=== PATIENT | female | born 1935 | race Caucasian/White ===

== ENCOUNTER 2019-04-16 10:44 | Emergency (ER) | payer MEDICARE, OTHER, SELFPAY ==
[2019-04-16 10:48] VITALS: BP 177/102; RESP 16; TEMP 36.3; O2SAT 97; BMI 18.3
--- NOTE | 2019-04-16 11:04 | W.ED.EXTPRO ---
HPI - Extremity Problem General: Chief complaint: Extremity Problem,Nontraumatic Stated complaint: left hand pain Time Seen by Provider: 04/16/19 10:46 History of Present Illness: Associated symptoms: Deny fever(s) or rash Review of Systems General: Reports: 10 or more systems reviewed and unremarkable except in HPI and below Narrative: pt has had left wrist pain for the past few days. States that a family member brought her large dog with her for the and the pt may have injured her wrist pushing the dog away from her. Const: Denies: fever or body aches Musc: Reports: joint pain (left wrist), joint stiffness and limited range of motion Skin/Breast: Denies: rash, redness, skin tenderness or skin swelling Neuro: Denies: numbness in extremities or weakness in extremities PFSH ED PFSH: Statuses (acute, chronic, etc) shown below reflect problem list status as previously entered and may not be historically accurate Social History Smoking and tobacco status: former smoker Physical Exam Const: COMMON NORMALS: no apparent distress, oriented x3, healthy appearing, alert and well nourished GENERAL APPEARANCE: cooperative and well kempt ORIENTATION/CONSCIOUSNESS: Yes awake, Yes oriented to person, Yes oriented to place and Yes oriented to time Extremity: COMMON NORMALS: normal to inspection (left wrist ttp/min swelling) Neuro: COMMON NORMALS: oriented x3, CN's II-XII intact bilaterally, moves all extremities, no focal motor deficits, no sensory deficits noted, deep tendon reflexes 2+ bilaterally and gait normal SENSORIUM/ORIENTATION: Yes alert, Yes oriented to person, Yes oriented to place and Yes oriented to time Psych: APPEARANCE: Yes well kempt Course Vital Signs: Vital signs: Vital Signs Temperature 97.4 F L 04/16/19 10:48 Respiratory Rate 16 04/16/19 10:48 Blood Pressure 177/102 04/16/19 10:48 Pulse Oximetry 97 04/16/19 10:48 Discharge Plan Discharge Prescriptions: No Action metformin 850 mg Tablet 850 mg PO BID RF: 0 metoprolol tartrate 25 mg Tablet 25 mg PO DAILY RF: 0 atorvastatin 80 mg Tablet 80 mg PO DAILY RF: 0 Coding Level of Care Code ED Detention Attendant for Chg Fwd Exam Problem Focused
--- NOTE | 2019-04-16 11:05 | XR_ITS ---
WS: [id number] HAND LEFT TECHNIQUE: 3 views of the left hand CLINICAL INFORMATION: left hand pain COMPARISON: None. FINDINGS: Osteopenia. IP joint narrowing. Degenerative narrowing radiocarpal joint and first CMC. Calcification at the TFCC. Normal metacarpals. No acute fractures. XR/XR hand LT min 3V* [id number] IMPRESSION: Osteopenia. No acute fractures.
--- NOTE | 2019-04-16 11:48 | ED_ITS ---
HPI - Extremity Problem General: Chief complaint: Extremity Problem,Nontraumatic Stated complaint: left hand pain Time Seen by Provider: 04/16/19 10:46 PFSH ED PFSH: Statuses (acute, chronic, etc) shown below reflect problem list status as previously entered and may not be historically accurate Social History Smoking and tobacco status: former smoker Course Vital Signs: Vital signs: Vital Signs Temperature 97.4 F L 04/16/19 10:48 Respiratory Rate 16 04/16/19 10:48 Blood Pressure 177/102 04/16/19 10:48 Pulse Oximetry 97 04/16/19 10:48 Discharge Plan Discharge Patient Disposition: Home, Self-Care Clinical Impression: Wrist arthritis, Wrist arthralgia, Sprain and strain of left wrist Condition: Stable Prescriptions: No Action atorvastatin 80 mg Tablet 80 mg PO DAILY RF: 0 Vitamin B-12 1,000 mcg Tablet 1,000 mcg PO DAILY RF: 0 Aspir-81 81 mg Tablet,Delayed Release (Dr/Ec) 81 mg PO DAILY RF: 0 metoprolol succinate 25 mg Tablet Extended Release 24 Hr 25 mg PO DAILY RF: 0 metformin 750 mg Tablet Extended Release 24 Hr 750 mg PO BID RF: 0 Vitamin D3 2,000 unit Tablet 2,000 unit PO DAILY RF: 0 Discharge Orders: Discharge Order (Routine); Ordered 04/16/19 Ordered By: Santy Smyth Referrals: Toshia Gomez MD [Primary Care Provider] - Discharge Diet: Usual diet Discharge Activity: Resume usual activity Patient Instructions: Wrist Sprain (ED) Discharge Date/Time: 04/16/19 12:18 Coding Level of Care Code ED Service Desk Associate for Morris Lawson
[2019-04-16 12:17] VITALS: BP 156/97; PULSE 90; RESP 18; O2SAT 98
== END 2019-04-16 12:18 | disposition home or self-care (01) ==
LOC: ER 11:57
PROVIDERS: Emergency Provider Family Medicine; Family Provider Internal Medicine; PCP Internal Medicine
DX: M13.832 Other specified arthritis, left wrist (principal); S63.502A Unspecified sprain of left wrist, initial encounter; S66.912A Strain of unspecified muscle, fascia and tendon at wrist and hand level, left hand, initial encounter; Z87.891 Personal history of nicotine dependence; X58.XXXA Exposure to other specified factors, initial encounter
CPT/HCPCS: 73130; 99281

== ENCOUNTER 2019-07-04 09:47 | Outpatient (CLI) | payer MEDICARE, OTHER, SELFPAY ==
--- NOTE | 2019-07-04 09:54 | CT_ITS ---
WS: [id number] CT scan of the thoracic and abdominal aorta with and without IV contrast. Additional two-dimensional coronal and sagittal reconstruction was performed. MIP images were also performed. 07/04/2019 Clinical Data: AAA Comparison: CTA of the thoracic aorta, 06/28/2018. DLP: 1193.[address] scans at [facility] use at least one of these dose optimization techniques: automat ed exposure control; mA and/or kV adjustment per patient size (includes targeted exams where dose is matched to clinical indication); or iterative reconstruction. Findings: The thoracic aorta shows no change. There is dilatation of the ascending thoracic aorta 3.73 cm with a small atherosclerotic plaque on the left side. There is calcification in the thoracic aortic wall. The descending thoracic aorta shows its greatest dilatation just above the diaphragm with the diamete r measuring 4.43 cm, essentially unchanged. There is no dissection of the thoracic aorta. Abdominal aorta progressively narrows from its diaphragmatic origin. The largest diameter of the abdo rosie aorta is at the origin of the celiac artery measuring 2.96 cm unchanged. There is calcification in the wall of the abdominal aorta extending into the common iliac vessels. No dissection or extrava sation of the abdominal aorta can be seen. The chest findings remain the same. The patient has had bilateral augmentation mammoplasty implants. In the lungs, there are no nodules, masses or effusions. The heart size remains same with coronary ar alok calcification. There is no pericardial effusion. The thoracic vertebral bodies show osteoarthrit ic change. The abdomen shows a few gallbladder calcifications but no evidence of acute or chronic cholecystitis. The remainder of the abdomen is unremarkable. The bones of the lumbar spine show osteoarthritic fowler ge with disc narrowing at L5-S1. CT/CT angio chest abdomen Impression: 1. Thoracic aortic aneurysm with largest diameter just above its passage throug h the diaphragm. 2. Atherosclerotic dilatation of the abdominal aorta unchanged. 3. No significant change in chest or abdomen findings.
[2019-07-04 10:38] LABS: Blood Urea Nitrogen 26 mg/dL (8-23)
[2019-07-04] MEDS: iodixanol 320 mg/mL 100mL Btl IV (10:39)
== END 2019-07-04 09:48 | disposition home or self-care (01) ==
LOC: RADWPI 09:53
PROVIDERS: Family Provider Internal Medicine; PCP Internal Medicine; Visit Provider Internal Medicine Cardiovascular Disease
DX: I71.4 Abdominal aortic aneurysm, without rupture (principal); I70.0 Atherosclerosis of aorta; Z01.812 Encounter for preprocedural laboratory examination
CPT/HCPCS: 71275; 74175; 82565; 84520; Q9967

== ENCOUNTER 2019-12-15 10:24 | Emergency (ER) | payer MEDICARE, OTHER, SELFPAY ==
[2019-12-15 10:26] VITALS: BP 181/87; PULSE 103; RESP 18; TEMP 36.3; O2SAT 96; BMI 17.9
--- NOTE | 2019-12-15 10:34 | W.ED.FALL ---
HPI - Fall General: Chief Complaint: Fall Stated Complaint: fall/nose injury Time Seen by Provider: 12/15/19 10:33 History of Present Illness: HPI Narrative: Patient fell while carrying groceries this morning and struck her nose left side of her face chin on the sidewalk. She has bruising to her nose abrasion to her chin and has a headache. Denies any neck pain or any other related trauma. complaint: fall Onset (ago): minute(s) Fall from: standing Fall witnessed: yes, by family Place fall occurred: home Loss of consciousness: None Prolonged down time: no Symptoms prior to fall: none Context: tripped/slipped Location of injury: face Associated symptoms-after fall: Reports headache(s); Denies abdominal pain or chest pain Review of Systems Const: Denies: fever(s), chills or body aches Eyes: Denies: change in vision or blurry vision ENMT: Reports: other (Swelling to her nose and nose pain and a nosebleed that has resolved); Denies: throat pain or nasal congestion Card: Denies: chest pain or dyspnea on exertion Resp: Denies: dyspnea, productive cough or non-productive cough GI: Denies: abdominal pain, nausea or vomiting Musc: Denies: extremity pain Skin/Breast: Denies: rash Neuro: Reports: headache(s) Psych: Denies: anxiety or depression Joon/Lymph: Denies: easy bruising PFSH ED PFSH: Medical History Abdominal aortic aneurysm (AAA) Ascending aortic aneurysm COPD (chronic obstructive pulmonary disease) 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, in remission Social History Smoking and tobacco status: former smoker Physical Exam Const: COMMON NORMALS: no acute distress, average body habitus and patient oriented x3 HENMT: COMMON NORMALS: normocephalic HEAD & SCALP: normal to inspection and normocephalic FACE & SINUS: normal facial exam OTHER: No sinus tenderness tenderness to the nasal bone and swelling blood clot inside the nares left side Eye: COMMON NORMALS: conjunctivae normal GENERAL EYE: appearance normal, both eyes and all related structures CONJUNCTIVA: Yes conjunctivae normal Neck/C-Spine: COMMON NORMALS: no JVD Chest: COMMONS NORMALS: normal inspection of the chest Resp: COMMON NORMALS: normal respiratory effort and clear to auscultation bilaterally AUSCULTATION: clear to auscultation bilaterally Cardio: COMMON NORMALS: no JVD, regular rate and regular rhythm RATE: regular rate RHYTHM: regular rhythm GI: COMMON NORMALS: Normal to inspection, nondistended, normoactive bowel sounds present Extremity: COMMON NORMALS: normal to inspection and full ROM Neuro: COMMON NORMALS: patient oriented x3, CN's II-XII intact bilaterally, moves all extremities and no focal motor deficits Skin: OTHER: Has bruising to the cannot the inner left eye not nose is swelled. Has abrasion to the left side on her chin. Course Vital Signs: Vital signs: Vital Signs Temperature 97.3 F L 12/15/19 10:26 Pulse Rate 103 H 12/15/19 10:26 Respiratory Rate 18 12/15/19 10:26 Blood Pressure 181/87 12/15/19 10:26 Pulse Oximetry 96 12/15/19 10:26 Discharge Plan Discharge Prescriptions: No Action calcium carbonate [Chalino-Mint] 260 mg calcium (650 mg) tablet,chewable 260 mg PO DAILY RF: 0 atorvastatin 80 mg Tablet 80 mg PO DAILY RF: 0 Vitamin B-12 1,000 mcg Tablet 1,000 mcg PO DAILY RF: 0 Aspir-81 81 mg Tablet,Delayed Release (Dr/Ec) 81 mg PO DAILY RF: 0 metoprolol succinate 25 mg Tablet Extended Release 24 Hr 25 mg PO DAILY RF: 0 metformin 750 mg Tablet Extended Release 24 Hr 750 mg PO BID RF: 0 Vitamin D3 2,000 unit Tablet 2,000 unit PO DAILY RF: 0 Coding Level of Care Code ED Burn Table Operator for Morris Lawson
--- NOTE | 2019-12-15 10:38 | CT_ITS ---
WS: [id number] CT HEAD NONCONTRAST HISTORY: fall TECHNIQUE: Contiguous axial imaging performed through the brain in 2.5 mm imaging. Bone and soft tiss ue windows. Sagittal and coronal reformats reviewed. All CT scans at [facility] use at ast one of these dose optimization techniques: automated exposure control; mA and/or kV adjustment pe r patient size (includes targeted exams where dose is matched to clinical indication); or iterative r econstruction. DLP: 675.66 mGy.cm COMPARISON: 07/29/2007 No acute intracranial hemorrhage, midline shift or mass effect. Mild atrophy and mild chronic microvascular ischemic disease. Small lacunar infarcts in the external capsules. Ventricles: Normal size with no hydrocephalus. No inferior displacement of cerebellar tonsils. Paranasal sinuses: As visualized are clear. Mastoid air cells: Well pneumatized. Calvarium and scalp: No calvarial fractures. Bilateral nasal bone fractures and there is also a fract ure through the nasal septum. There is extensive soft tissue edema over the nasal bones extending gre atest to the LEFT. CT/CT head wo con* [id number] IMPRESSION: 1. No acute intracranial hemorrhage or edema. 2. Bilateral nasal bone and nasal septum fractures. Facial bone CT to follow. 3. Mild atrophy and chronic ischemic disease.
--- NOTE | 2019-12-15 10:38 | CT_ITS ---
WS: [id number] CT FACIAL BONES HISTORY: fall TECHNIQUE: Images obtained from the supraorbital location through the mandible. Soft tissue and bone windows are reviewed. Coronal and sagittal reformats have also been submitted. DLP: 670.[address] scans at [facility] use at least one of these dose optimization techniques: automat ed exposure control; mA and/or kV adjustment per patient size (includes targeted exams where dose is matched to clinical indication); or iterative reconstruction. COMPARISON: None available. Mild bilateral nasal bone fractures. Nasal bones are deviated to the RIGHT of midline with mild buckl ing. There is also a slightly comminuted fracture involving the anterior nasal septum. There is exten sive soft tissue edema and air foci in the subcutaneous tissues around the nasal bones. Zygomatic arc hes are intact. No air-fluid levels in the sinuses. Orbits and globes are negative. Degenerative changes in the upper cervical spine. No fractures. Atherosclerosis intracranial carotid arteries. CT/CT facial bones wo con* [id number] IMPRESSION: 1. Minimally displaced nasal bone fractures to the RIGHT. 2. Mildly comminuted anterior nasal septum fracture.
[2019-12-15 11:29] VITALS: BP 136/69; PULSE 87; RESP 20; O2SAT 100
== END 2019-12-15 11:31 | disposition home or self-care (01) ==
PROVIDERS: Emergency Provider Nurse Practitioner Family; Family Provider Internal Medicine; PCP Internal Medicine
DX: S00.12XA Contusion of left eyelid and periocular area, initial encounter (principal); Z79.82 Long term (current) use of aspirin; W19.XXXA Unspecified fall, initial encounter; J44.9 Chronic obstructive pulmonary disease, unspecified; E11.9 Type 2 diabetes mellitus without complications; Z87.891 Personal history of nicotine dependence
CPT/HCPCS: 12345; 70450; 70486; 99281; 99282

== ENCOUNTER 2020-07-16 08:35 | Outpatient (CLI) | payer MEDICARE, OTHER, SELFPAY ==
--- NOTE | 2020-07-16 09:00 | CT_ITS ---
WS: [id number] CTA CHEST AND ABDOMEN TECHNIQUE: Noncontrast plus contrast enhanced CTA of the chest and abdomen with coronal and sagittal reformatted images and additional MIP Images. CLINICAL INFORMATION: FOLLOWUP CTA AAA COMPARISON: None. DLP: 785.[address] scans at [facility] use at least one of these dose optimization techniques: automat ed exposure control; mA and/or kV adjustment per patient size (includes targeted exams where dose is matched to clinical indication); or iterative reconstruction. FINDINGS: Stable dilatation of the ascending thoracic aorta measuring approximately 3.6 cm unchanged from previ ous. Mild aortic calcification. Normal aortic arch. Descending thoracic aortic aneurysm with ectatic thoracic aorta. Aneurysmal dilatation more prominent just above the diaphragm measuring 3.6 x 4.4 cm AP by transverse unchanged. Abdominal aorta is unchanged with moderate calcification. Slight aneurysmal dilatation at the level o f the SMA measuring 2.7 x 2.8 cm AP by transverse. Celiac and SMA are patent. Proximal common iliac a rteries are patent. Proximal renal arteries are patent. No evidence of intramural hematoma on the noncontrast imaging. Chronic emphysematous changes. Cardiomegaly. Bilateral breast implants. Cholelithiasis. No mediastina l or hilar lymphadenopathy. Lungs are well aerated. Normal liver. Normal pancreatic parenchymal enhan cement. Normal spleen. Normal GE junction. Normal renal parenchymal enhancement. No hydronephrosis. N o abdominal lymphadenopathy. Tiny fat-containing umbilical hernia. CT/CT angio chest abdomen IMPRESSION: 1. Stable ectatic ascending thoracic aorta measuring 3.6 cm. 2. Aneurysmal descending thoracic aorta just above the diaphragmatic hiatus me asuring 3.6 x 4.4 cm AP by transverse unchanged. 3. Mild to moderate aortic calcification with slightly aneurysmal abdominal ao rta at the level of the SMA measuring 2.7 x 2.8 cm AP by transverse unchanged. 4. Chronic emphysematous changes. Cardiomegaly. 5. Cholelithiasis. 6. Prior postoperative bilateral breast implants.
[2020-07-16 09:34] LABS: Blood Urea Nitrogen 27 mg/dL (8-23)
[2020-07-16] MEDS: iodixanol 320 mg/mL 100mL Btl IV (10:20)
== END 2020-07-16 08:36 | disposition home or self-care (01) ==
LOC: CT 08:35
PROVIDERS: PCP Internal Medicine; Visit Provider Internal Medicine Cardiovascular Disease
DX: I71.4 Abdominal aortic aneurysm, without rupture (principal); Z98.82 Breast implant status; K80.20 Calculus of gallbladder without cholecystitis without obstruction; I70.0 Atherosclerosis of aorta
CPT/HCPCS: 36415; 71275; 74175; 82565; 84520

== ENCOUNTER 2020-08-24 09:51 | Outpatient (CLI) | payer MEDICARE, OTHER, SELFPAY ==
--- NOTE | 2020-08-24 09:57 | MM_ITS ---
WS: [id number] LEFT DIGITAL MAMMOGRAPHY WITH CAD CLINICAL INFORMATION: HX OF BREAST CA HISTORY: COMPARISON: July 18, 2018 TECHNIQUE: views of the left breast were obtained. FINDINGS: Scattered fibroglandular densities of the left breast. Punctate calcifications left breast. Vascular calcification. Stable left breast implant with capsular retraction is unchanged. Lucent centered calc ifications. No suspicious focal mass, asymmetry, calcifications, or architectural distortion. No evidence of yee gnancy. MM/MM diagnostic mammo [id number] IMPRESSION: BI-RADS: 2-Benign FOLLOW UP: 1 Year Follow-up Recommend return to annual diagnostic mammography.
== END 2020-08-24 09:52 | disposition home or self-care (01) ==
LOC: RADSHAW 09:54
PROVIDERS: PCP Internal Medicine; Visit Provider Internal Medicine
DX: Z85.3 Personal history of malignant neoplasm of breast (principal)
CPT/HCPCS: 77065

== ENCOUNTER → 2020-10-22 09:24 | Outpatient (BNVA) | payer MEDICARE, OTHER, SELFPAY | PROVIDERS: PCP Internal Medicine; Visit Provider Obstetrics & Gynecology | DX: L72.3 Sebaceous cyst (principal) | CPT/HCPCS: 88304; 88305 ==

== ENCOUNTER → 2021-07-11 10:25 | Outpatient (BNVA) | payer MEDICARE, OTHER, SELFPAY | PROVIDERS: PCP Internal Medicine; Visit Provider Nurse Practitioner Family | DX: I71.4 Abdominal aortic aneurysm, without rupture (principal); I10 Essential (primary) hypertension; I71.9 Aortic aneurysm of unspecified site, without rupture; J44.9 Chronic obstructive pulmonary disease, unspecified; E11.9 Type 2 diabetes mellitus without complications; I71.2 Thoracic aortic aneurysm, without rupture; Z87.891 Personal history of nicotine dependence | CPT/HCPCS: 99214 ==

== ENCOUNTER 2021-08-12 07:07 | Outpatient (CLI) | payer MEDICARE, OTHER, SELFPAY ==
--- NOTE | 2021-08-12 07:14 | MR_ITS ---
WS: [id number] MRI RIGHT SHOULDER NONCONTRAST TECHNIQUE: Sagittal T2, coronal T1, T2 and proton density imaging. Axial gradient PDE imaging. CLINICAL INFORMATION: PAIN IN RIGHT SHOULDER COMPARISON: None. FINDINGS: Some images degraded by motion. Moderate degenerative arthritis at the AC joint with edema. Mild downsloping acromion. Slight subacro mial spurring. Fluid at the AC joint. Chronic atrophy of the supraspinatus and supraspinatus tendon d istally. Intact and supraspinatus distally. Suspected chronic partial undersurface tear with retracti on. Mild tendinopathy distal supraspinatus. Normal infraspinatus. Normal teres minor. Ovoid T2 signal abnormality along the superior glenoid labrum deep to the supraspinatus may represent partially retr acted tendon or paralabral cyst. This is only seen on the sagittal and coronal imaging. Chronic thinning of the subscapularis which appears intact. Biceps tendon intact within the bicipital groove. Somewhat diminutive biceps tendon. Degenerative fraying of the glenoid labrum. Biceps labral anchor appears intact. Tiny intra-articular biceps tendon appears intact. Advanced degenerative narr owing at the glenohumeral articulation with subchondral cystic change in the humerus. MR/MR shoulder RT wo con* [id number] IMPRESSION: 1. Moderate degenerative arthritis AC joint with edema and fluid. Small amount of subacromial/subdeltoid fluid. Slight subacromial spurring. 2. Advanced chronic thinning with suspected chronic partial tear with retracti on. Partial thin tendon intact distally. 3. Rotator cuff is otherwise intact. 4. Diminutive biceps tendon in the bicipital groove is intact. 5. Biceps labral anchor appears intact. 6. Advanced degenerative narrowing at the glenohumeral articulation with subch ondral cystic change in the humerus.
== END 2021-08-12 07:08 | disposition home or self-care (01) ==
LOC: RAD 07:09
PROVIDERS: PCP Internal Medicine; Visit Provider Internal Medicine
DX: M19.011 Primary osteoarthritis, right shoulder (principal)
CPT/HCPCS: 73221

== ENCOUNTER 2021-09-16 08:29 | Outpatient (CLI) | payer MEDICARE, OTHER, SELFPAY ==
--- NOTE | 2021-09-16 08:35 | MM_ITS ---
WS: [id number] LEFT 3D TOMOSYNTHESIS DIGITAL MAMMOGRAPHY WITH CAD CLINICAL INFORMATION: HX OF BREAST CA;RT MAST COMPARISON: August 24, 2020 TECHNIQUE: 3 views of the left breast were obtained. FINDINGS: Scattered fibroglandular densities of the left breast. LEFT breast implant with capsular retraction a ppears unchanged. A few punctate and lucent centered calcifications. Vascular calcification. No suspicious focal mass, asymmetry, calcifications, or architectural distortion. No evidence of yee gnancy. MM/[place] [id number] IMPRESSION: BI-RADS: 2-Benign FOLLOW UP: 1 Year Follow-up Recommend return to annual diagnostic mammography.
== END 2021-09-16 08:30 | disposition home or self-care (01) ==
PROVIDERS: PCP Internal Medicine; Visit Provider Internal Medicine
DX: Z12.31 Encounter for screening mammogram for malignant neoplasm of breast (principal); Z85.3 Personal history of malignant neoplasm of breast
CPT/HCPCS: 77061

== ENCOUNTER → 2022-01-09 15:21 | Outpatient (BNVA) | payer MEDICARE, OTHER, SELFPAY | PROVIDERS: PCP Internal Medicine; Visit Provider Internal Medicine Cardiovascular Disease | DX: I71.4 Abdominal aortic aneurysm, without rupture (principal); I71.9 Aortic aneurysm of unspecified site, without rupture; I71.2 Thoracic aortic aneurysm, without rupture; I10 Essential (primary) hypertension; J44.9 Chronic obstructive pulmonary disease, unspecified; E11.9 Type 2 diabetes mellitus without complications; Z79.84 Long term (current) use of oral hypoglycemic drugs; Z87.891 Personal history of nicotine dependence | CPT/HCPCS: 99214 ==

== ENCOUNTER 2022-01-23 13:47 | Outpatient (CLI) | payer MEDICARE, OTHER, SELFPAY ==
--- NOTE | 2022-01-23 14:00 | CT_ITS ---
WS: [id number] CT ANGIOGRAPHY chest, abdomen and pelvis HISTORY: hx of ascending, descending aneurysm TECHNIQUE: Noncontrast CT first performed through the chest. CT angiogram is performed during IV inje ction through the chest, abdomen and pelvis. Reformation and MIP images reviewed. All CT scans at [facility] use at least one of these dose optimization techniques: automated exposure control; mA and/or kV adjustment per patient size (includes targeted exams where dose is matched to clinical ind ication); or iterative reconstruction. CONTRAST: Omnipaque 350; 95 mL IV. DLP: 1016.51 mGy.cm COMPARISON: 07/16/2020 Thoracic aorta: Extensive atherosclerosis and ectasia throughout the thoracic aorta. Maximum transver se diameter ascending aorta is unchanged at 3.6 cm. Ectasia persists through the arch. Descending aor ta at the level of the chepe. Maximum diameter of 3.6 cm. Just above the aortic hiatus there is tort uosity and ectasia of aorta with a maximum diameter at 4.3 cm. This is also unchanged. No dissection. No significant progression of the aneurysm. No ulcerating plaque. Origin of the great vessels is nor mal. Bilateral breast implants. No pulmonary mass or pneumonia. No mediastinal or hilar adenopathy. Normal heart. No pericardial or pleural effusions. Small hiatal hernia. Abdominal/pelvic aorta: Ectasia continues into the abdominal aorta. Mild ectasia but no significant d ilatation of the aorta. Aorta begins to taper in the suprarenal location. Maximum suprarenal aorta is 2.8 cm. Infrarenal aorta is normal caliber. Both common iliac arteries are normal diameter. Celiac a xis and SMA are both widely patent. Kidneys are normally perfused. Cholelithiasis. No evidence for acute cholecystitis. No renal obstruction or mass. No ascites. No GI obstruction. No adenopathy. CT/CT angio chest abdomen IMPRESSION: 1. Stable mild dilatation of the ascending aorta with a maximum diameter 3.6 c m. 2. Stable aneurysmal dilatation distal aorta just above the aortic hiatus to 4 .3 cm. 3. Mild ectasia and atherosclerosis in the suprarenal aorta. 4. No infrarenal aorta aneurysm. 5. Bilateral breast implants. 6. Cholelithiasis without acute cholecystitis.
[2022-01-23 14:30] LABS: Blood Urea Nitrogen 24 mg/dL (8-23)
[2022-01-23] MEDS: iohexol 350 mg/mL 100 mL Btl IV (14:50)
== END 2022-01-23 13:48 | disposition home or self-care (01) ==
LOC: RAD 13:49
PROVIDERS: PCP Internal Medicine; Visit Provider Nurse Practitioner Family
DX: I71.20 Thoracic aortic aneurysm, without rupture, unspecified (principal); I71.40 Abdominal aortic aneurysm, without rupture, unspecified; K80.20 Calculus of gallbladder without cholecystitis without obstruction; Z98.82 Breast implant status
CPT/HCPCS: 71275; 74175; 82565; 84520

== ENCOUNTER 2022-04-19 14:19 | Outpatient (CLI) | payer MEDICARE, OTHER, SELFPAY ==
--- NOTE | 2022-04-19 | XR_ITS ---
WS: [id number] Chest 2 views, 04/19/2022 Clinical Data: BACTERIAL PNEUMONIA Comparison: None. Findings: No nodules, masses or effusions are seen. The heart is normal. The pulmonary vascularity is not increased. No pneumonia or pneumothorax is seen. The diaphragms are flattened. The aortic arch a nd descending thoracic aorta show calcification and tortuosity. There are bilateral augmentation mamm oplasty implants. There are clips in the right axilla from surgery. XR/XR chest 2V* [id number] Impression: Atherosclerosis and hyperinflation.
== END 2022-04-19 14:20 | disposition home or self-care (01) ==
PROVIDERS: PCP Internal Medicine; Visit Provider Internal Medicine
DX: J15.9 Unspecified bacterial pneumonia (principal); I70.90 Unspecified atherosclerosis
CPT/HCPCS: 71046

== ENCOUNTER 2022-10-13 08:03 | Outpatient (CLI) | payer MEDICARE, OTHER, SELFPAY ==
--- NOTE | 2022-10-13 08:18 | MM_ITS ---
WS: [id number] VIEWS: MLO, CC, and ML views of the left breast. Breast implant displacement MLO, CC and 90 degree l ateral views of the left breast were also included. 3D digital tomosynthesis is also included in this exam. Comparison made with prior exam of 04/07/2010, 04/10/2011, 04/12/2012, 04/14/2013, 05/01/2014, 05/03/19 16, 05/05/2016, 05/07/2017, 07/18/2018, 08/24/2020, 09/16/2021.. Findings: There was no sign of mass, architectural distortion or suspicious calcification in either breast. Int act left breast silicone implant in place.There are areas of scattered fibroglandular density. Alfred grewal stable appearing small nodules. MM/[place] [id number] Impression: BI-RADS: 2-Benign finding. FOLLOW-UP: 1 Year Follow-up This mammogram was also analyzed by the Computer Aided Detection System R2 [employer] Specialist.
== END 2022-10-13 08:04 | disposition home or self-care (01) ==
LOC: RAD 08:04
PROVIDERS: PCP Internal Medicine; Visit Provider Internal Medicine
DX: Z85.3 Personal history of malignant neoplasm of breast (principal); Z90.11 Acquired absence of right breast and nipple
CPT/HCPCS: 77061; G0279

== ENCOUNTER → 2022-12-13 10:50 | Outpatient (BNVA) | payer MEDICARE, OTHER, SELFPAY | PROVIDERS: PCP Internal Medicine; Visit Provider Internal Medicine Cardiovascular Disease | DX: I71.40 Abdominal aortic aneurysm, without rupture, unspecified (principal); Z87.891 Personal history of nicotine dependence | CPT/HCPCS: 99214 ==

== ENCOUNTER 2023-06-13 12:05 | Outpatient (CLI) | payer MEDICARE, OTHER, SELFPAY ==
--- NOTE | 2023-06-13 12:14 | XR_ITS ---
WS: [id number] Exam: XR hip RT 2-3V wo/w pel* [id number] Date/Time of Exam: 06/13/2023 12:26 PM Reason For Exam: PAIN IN R HIP No fracture or dislocation. The joint compartment is preserved. Normal soft tissues. IMPRESSION: 1. Unremarkable RIGHT hip.
== END 2023-06-13 12:06 | disposition home or self-care (01) ==
LOC: RAD 12:09
PROVIDERS: PCP Internal Medicine; Visit Provider Internal Medicine
DX: M25.551 Pain in right hip (principal)
CPT/HCPCS: 73502

== ENCOUNTER 2023-12-12 08:39 | Outpatient (CLI) | payer MEDICARE, OTHER, SELFPAY ==
--- NOTE | 2023-12-12 09:02 | MM_ITS ---
WS: [id number] LEFT DIAGNOSTIC DIGITAL TOMOSYNTHESIS MAMMOGRAPHY WITH CAD and displacement views. HISTORY: History of breast cancer. Prior RIGHT mastectomy. COMPARISON: 09/16/2021, 08/24/2020 Technique: CC, MLO and ML views. Implant displacement views. Breast composition: There are scattered areas of fibroglandular density. Irregular shaped of the impl ant is similar to prior studies. No change in position. Partial calcification. No suspicious masses o r calcification. MM/[place] [id number] IMPRESSION: BI-RADS: 2-Benign FOLLOW UP: 1 Year Follow-up
== END 2023-12-12 08:40 | disposition home or self-care (01) ==
PROVIDERS: PCP Internal Medicine; Visit Provider Internal Medicine
DX: Z85.3 Personal history of malignant neoplasm of breast (principal)
CPT/HCPCS: 77061; G0279

== ENCOUNTER → 2024-07-21 12:47 | Outpatient (BNVA) | payer MEDICARE, OTHER, SELFPAY | PROVIDERS: PCP Internal Medicine; Visit Provider Internal Medicine Cardiovascular Disease | DX: I71.40 Abdominal aortic aneurysm, without rupture, unspecified (principal); I71.9 Aortic aneurysm of unspecified site, without rupture; I25.10 Atherosclerotic heart disease of native coronary artery without angina pectoris; J44.89 Other specified chronic obstructive pulmonary disease; E11.9 Type 2 diabetes mellitus without complications; Z79.85 Long-term (current) use of injectable non-insulin antidiabetic drugs; Z79.82 Long term (current) use of aspirin; Z72.0 Tobacco use | CPT/HCPCS: 99214 ==

== ENCOUNTER 2024-07-30 07:44 | Outpatient (CLI) | payer MEDICARE, OTHER, SELFPAY ==
--- NOTE | 2024-07-30 08:00 | CT_ITS ---
WS: [id number] CTA THORACIC AORTA WITH AND WITHOUT CONTRAST. HISTORY: aortic aneurysm TECHNIQUE: CTA imaging of the thorax is performed with and without contrast. After noncontrast imaging is performed, CT angiogram is performed during injection of Omnipaque 350; 100 mL IV.. Sagittal and coronal reconstructions, sagittal and coronal MIP imaging is submitted. All CT scans at [facility] use at least one of these dose optimization techniques: automated exposure control; mA and/or kV adjustment per patient size (includes targeted exams where dose is matched to clinical indication); or iterative reconstruction. DLP: 305.84 mGy.cm COMPARISON: 01/23/2022 Advanced atherosclerotic plaque within the thoracic aorta. Ascending aorta is minimally dilated to 3.6 mm which is similar to the prior study. At the the level of the chepe is 3.6 cm in diameter also. Transverse diameter at the level of the aortic hiatus is also mildly dilated to 3.6 cm. Normal appearance of the sinus of Valsalva and sinotubular junction. Great vessels arise normally from the arch. There is no dissection or ulcerated plaque identified. Distal thoracic aorta is tortuous. Suprarenal aortic calcifications with no aneurysm. Normal size heart. No pericardial or pleural effusions. Normal size pulmonary artery. Lungs are clear. No pneumonia, pulmonary mass or nodule. No mediastinal or hilar adenopathy. Bilateral breast implants are intact. Cholelithiasis. No adrenal mass. No destructive bone lesions. CT/CT angio chest [id number] IMPRESSION: 1. Diffusely ectatic thoracic aorta with minimal dilatation of the ascending a ino 3.6 cm. Descending aorta is also 3.6 cm. Stable. 2. Moderate calcified plaque with intimal thickening. No dissection. No ulcera dominick plaque. 3. Normal sinus of Valsalva and sinotubular junction. 4. No pulmonary mass. 5. Cholelithiasis without acute cholecystitis.
[2024-07-30 09:08] LABS: Blood Urea Nitrogen 16 mg/dL (8-23)
== END 2024-07-30 07:45 | disposition home or self-care (01) ==
PROVIDERS: PCP Internal Medicine; Visit Provider Internal Medicine Cardiovascular Disease
DX: I71.20 Thoracic aortic aneurysm, without rupture, unspecified (principal); I71.9 Aortic aneurysm of unspecified site, without rupture; I71.40 Abdominal aortic aneurysm, without rupture, unspecified; R93.89 Abnormal findings on diagnostic imaging of other specified body structures; K80.20 Calculus of gallbladder without cholecystitis without obstruction; I70.0 Atherosclerosis of aorta; Z98.82 Breast implant status
CPT/HCPCS: 71275; 82565; 84520